=== PATIENT | female | born 1975 | race African-American/Black ===

== ENCOUNTER 2016-06-01 12:39 | Emergency (ER) | payer BC, MEDICAID ==
[~2016-06-01] VITALS: Ht 172.7 cm; Wt 70.0 kg
[~2016-06-01 12:39] MED LIST: MIREIUD IU
[2016-06-01 12:41] VITALS: BP 152/96; PULSE 96; RESP 20; TEMP 98.4; O2SAT 96
[2016-06-01] MEDS ORDERED: MIREIUD I-UTERINE (12:51)
[2016-06-01] MEDS ORDERED: SODIUM CHLOR 0.9% 1000 ML INJ 1,000 ML IV SCH (12:58)
[2016-06-01] MEDS ORDERED: diphenhydrAMINE HCL 50 MG/ML VIAL IV PUSH ONE (13:00)
[2016-06-01] MEDS ORDERED: ONDANSETRON HCL 4 MG/2 ML VIAL IVP ONE (13:00)
[2016-06-01] MEDS ORDERED: SODIUM CHLORIDE 0.9% FLUSH 5 ML FLUSH IVF PRN (13:00)
[2016-06-01] MEDS ORDERED: MORPHINE SULFATE 4 MG/ML INJ IV PUSH ONE (13:00)
--- NOTE | 2016-06-01 13:05 | PD ---
HPI Chief Complaint: Abdominal Pain Time Seen by Provider: 12:51 Travel History International Travel<30 days: No Contact w/Intl Traveler<30days: No Traveled to known affect area: No History of Present Illness HPI The patient is a 40-year-old Radha female who presents to the emergency department for abdominal pain. The patient developed left lower quadrant abdominal pain earlier today that radiates to the suprapubic region. The patient was evaluated by her advertising layout worker at the [address] [place] [address] and had a pelvic examination performed. The patient was then referred to the emergency department for further evaluation. The pain is constant, sharp, and assisted with mild nausea. The patient denies any vomiting, diarrhea, or change in bowel habits. The patient's last bowel movement was this morning. The patient does have a previous history of septic , ectopic on the left with previous salpingectomy, and previous cholecystectomy. The patient denies any vaginal discharge or bleeding. The patient currently has an IUD in place. The patient denies any dysuria, frequency, or urgency. Patient has no known history of diverticulitis. The patient is unsure if they took the left ovary out, however, thinks they left the left ovary when she had the ectopic . PFSH Past Medical History Anxiety: Yes Diminished Hearing: No Tetanus Vaccination: < 5 Years Influenza Vaccination: No ?: Not : 9 Para: 3 Miscarriage: 4 : 2 Ectopic : Yes Dilation and Curettage (D&C): Yes (x3) Past Surgical History Cholecystectomy: Yes Gynecologic Surgery: Yes (left tube removed r/t tubal , ) Other Surgery: Yes (axillary lympnode removed) Social History Alcohol Use: Yes (mix drinks socially) Tobacco Use: No Substance Use: Yes (marijuana) Allergies-Medications (Allergen,Severity, Reaction): Coded Allergies: Cat Dander (Verified Allergy, Severe, HIVES, 06/01/16) Codeine (Verified Allergy, Severe, RASH AND HIVES, 06/01/16) Tylenol/Codeine (Verified Allergy, Severe, HIVES AND RASH, 06/01/16) Vicodin (Verified Allergy, Severe, RASH AND HIVES, 06/01/16) Reported Meds & Prescriptions Reported Meds & Active Scripts Active Reported Mirena (Levonorgestrel (Iud)) 20 Mcg/24 Hr Iud 52 Mg I-UTERINE ONCE Review of Systems Except as stated in HPI: all other systems reviewed are Neg General / Constitutional: No: Fever Cardiovascular: No: Chest Pain or Discomfort Respiratory: No: Shortness of Breath Gastrointestinal: Positive: Nausea, Abdominal Pain, No: Vomiting, Diarrhea, Constipation Genitourinary: Positive: Pelvic Pain, No: Urgency, Frequency, Dysuria, Hematuria, Discharge, Vaginal Bleeding Skin: No Rash Physical Exam Narrative GENERAL: Awake, alert, pleasant 40-year-old female who appears her stated age and appears in moderate discomfort. SKIN: Warm and dry. HEAD: Atraumatic. Normocephalic. EYES: Pupils equal and round. No scleral icterus. No injection or drainage. ENT: No nasal bleeding or discharge. Mucous membranes pink and moist. NECK: Trachea midline. No JVD. CARDIOVASCULAR: Regular rate and rhythm. No murmur appreciated. RESPIRATORY: No accessory muscle use. Clear to auscultation. Breath sounds equal bilaterally. GASTROINTESTINAL: Abdomen soft, tender palpation in the suprapubic and left lower quadrant. No tenderness or right lower quadrant. No rebound tenderness, however, mild guarding. No rigidity noted. MUSCULOSKELETAL: No obvious deformities. No clubbing. No cyanosis. No edema. NEUROLOGICAL: Awake and alert. No obvious cranial nerve deficits. Motor grossly within normal limits. Normal speech. PSYCHIATRIC: Appropriate mood and affect; insight and judgment normal. Data Data Last Documented VS Vital Signs Date Time Temp Pulse Resp B/P Pulse Ox O2 Delivery O2 Flow Rate FiO2 06/01/16 14:07 97 18 147/95 98 Room Air 06/01/16 12:41 98.4 Orders Complete Blood Count With Diff (06/01/16 12:58) Comprehensive Metabolic Panel (06/01/16 12:58) Lipase (06/01/16 12:58) Urinalysis - C+S If Indicated (06/01/16 12:58) Iv Access Insert/Monitor (06/01/16 12:58) Ecg Monitoring (06/01/16 12:58) Oximetry (06/01/16 12:58) Morphine Inj (Morphine Inj) (06/01/16 13:00) Ondansetron Inj (Zofran Inj) (06/01/16 13:00) Sodium Chlor 0.9% 1000 Ml Inj (Ns 1000 M (06/01/16 12:58) Sodium Chloride 0.9% Flush (Ns Flush) (06/01/16 13:00) Ed Urine Pregnancytest Poc (06/01/16 12:58) Diphenhydramine Inj (Benadryl Inj) (06/01/16 13:00) Ct Abd/Pel W/O Iv Contrast (06/01/16 ) Ciprofloxacin 400 Mg Premix (Cipro 400 M (06/01/16 14:00) Metronidazole 500 Mg Inj (Flagyl 500 Mg (06/01/16 14:00) Ketorolac Inj (Toradol Inj) (06/01/16 14:00) Labs Laboratory Tests Test 06/01/16 13:00 White Blood Count 17.7 TH/MM3 Red Blood Count 4.75 MIL/MM3 Hemoglobin 13.9 GM/DL Hematocrit 41.0 % Mean Corpuscular Volume 86.4 FL Mean Corpuscular Hemoglobin 29.4 PG Mean Corpuscular Hemoglobin 34.0 % Concent Red Cell Distribution Width 14.2 % Platelet Count 197 TH/MM3 Mean Platelet Volume 9.5 FL Neutrophils (%) (Auto) 89.4 % Lymphocytes (%) (Auto) 4.4 % Monocytes (%) (Auto) 5.5 % Eosinophils (%) (Auto) 0.1 % Basophils (%) (Auto) 0.6 % Neutrophils # (Auto) 15.8 TH/MM3 Lymphocytes # (Auto) 0.8 TH/MM3 Monocytes # (Auto) 1.0 TH/MM3 Eosinophils # (Auto) 0.0 TH/MM3 Basophils # (Auto) 0.1 TH/MM3 CBC Comment DIFF FINAL Differential Comment Sodium Level 138 MEQ/L Potassium Level 4.0 MEQ/L Chloride Level 105 MEQ/L Carbon Dioxide Level 28.2 MEQ/L Anion Gap 5 MEQ/L Blood Urea Nitrogen 12 MG/DL Creatinine 0.96 MG/DL Estimat Glomerular Filtration 78 ML/MIN Rate Random Glucose 91 MG/DL Calcium Level 9.0 MG/DL Total Bilirubin 1.5 MG/DL Aspartate Amino Transf 12 U/L (AST/SGOT) Alanine Aminotransferase 17 U/L (ALT/SGPT) Alkaline Phosphatase 88 U/L Total Protein 8.1 GM/DL Albumin 4.0 GM/DL Lipase 54 U/L MDM Medical Decision Making Medical Screen Exam Complete: Yes Emergency Medical Condition: Yes Medical Record Reviewed: Yes Interpretation(s) Laboratory Tests Test 06/01/16 13:00 White Blood Count 17.7 TH/MM3 Red Blood Count 4.75 MIL/MM3 Hemoglobin 13.9 GM/DL Hematocrit 41.0 % Mean Corpuscular Volume 86.4 FL Mean Corpuscular Hemoglobin 29.4 PG Mean Corpuscular Hemoglobin 34.0 % Concent Red Cell Distribution Width 14.2 % Platelet Count 197 TH/MM3 Mean Platelet Volume 9.5 FL Neutrophils (%) (Auto) 89.4 % Lymphocytes (%) (Auto) 4.4 % Monocytes (%) (Auto) 5.5 % Eosinophils (%) (Auto) 0.1 % Basophils (%) (Auto) 0.6 % Neutrophils # (Auto) 15.8 TH/MM3 Lymphocytes # (Auto) 0.8 TH/MM3 Monocytes # (Auto) 1.0 TH/MM3 Eosinophils # (Auto) 0.0 TH/MM3 Basophils # (Auto) 0.1 TH/MM3 CBC Comment DIFF FINAL Differential Comment Sodium Level 138 MEQ/L Potassium Level 4.0 MEQ/L Chloride Level 105 MEQ/L Carbon Dioxide Level 28.2 MEQ/L Anion Gap 5 MEQ/L Blood Urea Nitrogen 12 MG/DL Creatinine 0.96 MG/DL Estimat Glomerular Filtration 78 ML/MIN Rate Random Glucose 91 MG/DL Calcium Level 9.0 MG/DL Total Bilirubin 1.5 MG/DL Aspartate Amino Transf 12 U/L (AST/SGOT) Alanine Aminotransferase 17 U/L (ALT/SGPT) Alkaline Phosphatase 88 U/L Total Protein 8.1 GM/DL Albumin 4.0 GM/DL Lipase 54 U/L Last Impressions Abdomen/Pelvis CT 06/01/16 0000 Signed Impressions: Service Date/Time: May 13:30 - CONCLUSION: Acute sigmoid diverticulitis. No evidence of abscess formation. Melvi Clemons MD Differential Diagnosis Differential diagnosis includes diverticulitis, ectopic , pyelonephritis, nephrolithiasis, ovarian torsion, ovarian cyst, perforated viscus, atypical appendicitis. Narrative Course IV was established, labs are drawn and sent, and the patient was monitored in the emergency department. The patient was administered morphine with Benadryl secondary to history of allergies to codeine and Vicodin with itching. The patient is unsure if she has a history of allergies to morphine. The patient was also administered 1 L of IV fluids. Bedside UA test was obtained , bedside test was negative. White count was elevated 17.4, otherwise , LFTs and lipase are unremarkable. CT of the abdomen and pelvis reveals sigmoid diverticulitis with no perforation or abscess formation. Therefore, patient was administered Cipro and Flagyl intravenously. Patient was also administered Toradol 30 mg intravenously for pain. The patient states she can take Percocet for pain, she has had it in the past without difficulty. Diagnosis Primary Impression: Diverticulitis of sigmoid colon Patient Instructions: General Instructions Additional Instructions: Medications as directed. Follow-up with your primary physician. Please provide the patient a copy of her CT results and lab results at discharge. Return if symptoms worsen or progress. Med/Other Pt SpecificInfo: Prescription(s) given Scripts Oxycodone-Acetaminophen (Percocet)5-325 mg Tab1 Tab PO Q6H PRN (PAIN) #20 TAB Ref 0 Prov:Juan Whitman MD 06/01/16 Metronidazole (Flagyl)500 Mg [id number] Mg PO BID 7 Days Ref 0 Prov:Juan Whitman MD 06/01/16 Ciprofloxacin (Cipro)500 Mg [id number] Mg PO BID 7 Days Ref 0 Prov:Juan Whitman MD 06/01/16 Disposition: 01 DISCHARGE HOME Condition: Stable Juan Whitman MD Jun 01, 2016 13:05
[2016-06-01 13:22] LABS: AUTOMATED NEUTROPHIL # 15.8 TH/MM3 (1.8-7.7); BASOPHIL # 0.1 TH/MM3 (0-0.2); BASOPHIL % 0.6 % (0.0-2.0); EOSINOPHIL % 0.1 % (0.0-4.0); HEMO FLAGS DIFF FINAL; LYMPH % 4.4 % (9.0-44.0); LYMPHOCYTE # 0.8 TH/MM3 (1.0-4.8); MEAN CELL VOLUME 86.4 FL (80.0-100.0); MEAN CORPUSCULAR HEMOGLOBIN 29.4 PG (27.0-34.0); MONO % 5.5 % (0.0-8.0); NEUT % 89.4 % (16.0-70.0); PLATELET COUNT 197 TH/MM3 (150-450); RED BLOOD COUNT 4.75 MIL/MM3 (4.00-5.30); RED CELL DISTRIBUTION WIDTH 14.2 % (11.6-17.2); WHITE BLOOD COUNT 17.7 TH/MM3 (4.0-11.0)
[2016-06-01 13:35] LABS: ANION GAP 5 MEQ/L (5-15); AST (GOT) 12 U/L (15-37); BICARBONATE 28.2 MEQ/L (21.0-32.0); BLOOD UREA NITROGEN 12 MG/DL (7-18); CHLORIDE 105 MEQ/L (98-107); GLOMERULAR FILTRATION RATE 78 ML/MIN (>89); SODIUM (NA) 138 MEQ/L (136-145)
[2016-06-01 13:43] LABS: ALKALINE PHOSPHATASE 88 U/L (45-117); ALT (GPT) 17 U/L (10-53); TOTAL BILIRUBIN ADULT 1.5 MG/DL (0.2-1.0)
--- NOTE | 2016-06-01 13:53 | RADRPT ---
EXAM DATE/TIME: 06/01/2016 13:30 [facility] COMPARISON: No previous studies available for comparison. INDICATIONS : Left lower quadrant pain. ORAL CONTRAST: No oral contrast ingested. RADIATION DOSE: 9.96 CTDIvol (mGy) MEDICAL HISTORY : None SURGICAL HISTORY : Cholecystectomy. Left salpingectomy. ENCOUNTER: Initial ACUITY: 1 day PAIN SCALE: 6/10 LOCATION: Left lower quadrant TECHNIQUE: Volumetric scanning of the abdomen and pelvis was performed. Using automated exposure control and ad justment of the mA and/or kV according to patient size, radiation dose was kept as low as reasonably achievable to obtain optimal diagnostic quality images. FINDINGS: LOWER LUNGS: The visualized lower lungs are clear. LIVER: Homogeneous density without lesion. There is no dilation of the biliary tree. No calcified gallston es. SPLEEN: Normal size without lesion. PANCREAS: Within normal limits. KIDNEYS: Normal in size and shape. There is no mass, stone, or hydronephrosis. ADRENAL GLANDS: Within normal limits. VASCULAR: There is no aortic aneurysm. BOWEL/MESENTERY: There are scattered diverticuli identified within the sigmoid colon with adjacent leighann-mesenteric fat stranding. There is a small amount of free fluid identified within the mesentery of the right. No ev idence of free air or discrete abscess. ABDOMINAL WALL: Within normal limits. RETROPERITONEUM: There is no lymphadenopathy. BLADDER: No wall thickening or mass. REPRODUCTIVE: Within normal limits. IUD identified within the midline uterus. INGUINAL: There is no lymphadenopathy or hernia. MUSCULOSKELETAL: Within normal limits for patient age. CONCLUSION: Acute sigmoid diverticulitis. No evidence of abscess formation. Melvi Clemons MD on June 01, 2016 at 13:49 Board Certified Radiologist. This report was verified electronically.
[2016-06-01] MEDS ORDERED: CIPROFLOXACIN 400 MG PREMIX 200 ML IV ONE (14:00)
[2016-06-01] MEDS ORDERED: metroNIDAZOLE 500 MG INJ 100 ML IV ONE (14:00)
[2016-06-01] MEDS ORDERED: KETOROLAC TROMETHAMINE 30 MG/ML (IVP) VIAL IV PUSH ONE (14:00)
[2016-06-01 14:07] VITALS: BP 147/95; PULSE 97; RESP 18; O2SAT 98
[2016-06-01] MEDS ORDERED: PERC5TAB12 PO (14:44)
[2016-06-01] MEDS ORDERED: METR-1 PO (14:44)
[2016-06-01] MEDS ORDERED: CIPR-9 PO (14:44)
[2016-06-01 15:00] VITALS: BP 124/60; PULSE 72; RESP 16; O2SAT 98
[2016-06-01] MEDS ORDERED: SODIUM CHLOR 0.9% 1000 ML INJ 1,000 ML IV ONE (15:00)
[2016-06-01 17:58] VITALS: BP 129/59
== END 2016-06-01 18:12 | disposition home or self-care (01) ==
LOC: NEPA 12:39
DX: K57.32 Diverticulitis of large intestine without perforation or abscess without bleeding (principal); F12.90 Cannabis use, unspecified, uncomplicated
CPT/HCPCS: 74176; 80053; 83690; 84703; 85025; 96361; 96365; 96375; 99284; J0744; J1200; J1885; J2270; J2405; J7030

== ENCOUNTER 2016-12-07 14:36 | Emergency (ER) | payer BC, MEDICAID, OTHER ==
[~2016-12-07] VITALS: Ht 170.2 cm; Wt 67.0 kg
[~2016-12-07 14:36] MED LIST changes: +CIPR-9 PO; +METR-1 PO; +MIREIUD I-UTERINE; -MIREIUD IU; +PERC5TAB12 PO
[2016-12-07 14:40] VITALS: BP 150/87; PULSE 88; RESP 16; TEMP 98.1; O2SAT 98
[2016-12-07] MEDS ORDERED: MELO-1 PO (15:29)
[2016-12-07] MEDS ORDERED: ROBA500T PO (15:29)
--- NOTE | 2016-12-07 15:30 | PD ---
HPI Chief Complaint: Back/ Neck Pain or Injury Time Seen by Provider: 15:24 Travel History International Travel<30 days: No Contact w/Intl Traveler<30days: No Traveled to known affect area: No History of Present Illness HPI 41-year-old female presents emergency department for evaluation of right low back pain 6 months. Patient denies specific injury. She reports the pain is intermittent. Worse with movement, relieved with rest, severity 4-10. She denies fever, chills, saddle anesthesia, urinary symptoms, numbness/weakness/ tingling of lower extremities. PFSH Past Medical History Medical History: Denies Significant Hx Anxiety: Yes Diminished Hearing: No Diverticulitis: Yes ?: Not LMP: MIRENA IN PLACE : 9 Para: 3 Miscarriage: 4 : 2 Ectopic : Yes Dilation and Curettage (D&C): Yes (x3) Past Surgical History Cholecystectomy: Yes Gynecologic Surgery: Yes (left tube removed r/t tubal , ) Other Surgery: Yes (axillary lympnode removed) Social History Alcohol Use: Yes ("RARELY") Tobacco Use: No Substance Use: Yes (marijuana) Allergies-Medications (Allergen,Severity, Reaction): Coded Allergies: Cat Dander (Verified Allergy, Severe, HIVES, 12/07/16) Codeine (Verified Allergy, Severe, RASH AND HIVES, 12/07/16) Tylenol/Codeine (Verified Allergy, Severe, HIVES AND RASH, 12/07/16) Vicodin (Verified Allergy, Severe, RASH AND HIVES, 12/07/16) Reported Meds & Prescriptions Reported Meds & Active Scripts Active Review of Systems Except as stated in HPI: all other systems reviewed are Neg General / Constitutional: No: Fever Eyes: No: Visual changes HENT: No: Headaches Cardiovascular: No: Chest Pain or Discomfort Respiratory: No: Shortness of Breath Gastrointestinal: No: Abdominal Pain Genitourinary: No: Dysuria Physical Exam Narrative GENERAL: Well-nourished, well-developed patient. SKIN: Focused skin assessment warm/dry. HEAD: Normocephalic. EYES: No scleral icterus. No injection or drainage. NECK: Supple, trachea midline. No JVD or lymphadenopathy. CARDIOVASCULAR: Regular rate and rhythm without murmurs, gallops, or rubs. RESPIRATORY: Breath sounds equal bilaterally. No accessory muscle use. GASTROINTESTINAL: Abdomen soft, non-tender, nondistended. MUSCULOSKELETAL: No cyanosis, or edema. 5 out of 5 strength in the lower extremities. Normal sensation. BACK: Nontender without obvious deformity. No CVA tenderness. Tenderness to the right paraspinous muscles in lumbar spine. Data Data Last Documented VS Vital Signs Date Time Temp Pulse Resp B/P Pulse Ox O2 Delivery O2 Flow Rate FiO2 12/07/16 14:40 98.1 88 16 150/87 98 MDM Medical Decision Making Medical Screen Exam Complete: Yes Emergency Medical Condition: Yes Differential Diagnosis Lumbar strain, sciatica, herniated disc Narrative Course 41-year-old female presents emergency department for right low back pain 6 months. Physical exam is reassuring. Patient has no midline spine tenderness. She has mild tenderness to the right paraspinous muscles in the lumbar region. Patient will be prescribed NSAIDs and muscle relaxers instructed to follow-up with PCP. Diagnosis Primary Impression: Lumbar strain Qualified Code: S39.012A - Lumbar strain, initial encounter Referrals: Primary Care Physician Scripts Methocarbamol (Robaxin)500 Mg [id number] Mg PO TID PRN (MUSCLE SPASM) #12 TAB Prov:Fang Lara 12/07/16 Meloxicam 15 Mg Tab15 Mg PO DAILY #30 TAB Ref 0 Prov:Fang Lara 12/07/16 Disposition: 01 DISCHARGE HOME Condition: Stable Fang Lara Dec 07, 2016 15:30
== END 2016-12-07 15:49 | disposition home or self-care (01) ==
LOC: PHEFT 14:36
DX: S39.012A Strain of muscle, fascia and tendon of lower back, initial encounter (principal); X58.XXXA Exposure to other specified factors, initial encounter; Y93.9 Activity, unspecified; Y92.9 Unspecified place or not applicable
CPT/HCPCS: 99284

== ENCOUNTER 2018-04-22 08:07 | Observation (INO) ==
[2018-04-22 09:15] LABS: Baso % (Auto) 0.4 % (0.0-2.0); Eos # (Auto) 0.1 th/mm3 (0.0-0.4); Eos % (Auto) 0.9 % (0.0-4.0); Hematocrit 38.5 % (35.0-46.0); Hemoglobin 13.3 gm/dL (11.6-15.3); Lymph # (Auto) 1.7 th/mm3 (1.0-4.8); Lymph % (Auto) 18.7 % (9.0-44.0); Mean Corpuscular HGB Conc 34.5 % (32.0-36.0); Mean Corpuscular Hemoglobin 32.3 pg (27.0-34.0); Mean Corpuscular Volume 93.6 fL (80.0-100.0); Mean Platelet Volume 9.7 fL (7.0-11.0); Mono # (Auto) 0.6 th/mm3 (0.0-0.9); Neut # (Auto) 6.5 th/mm3 (1.8-7.7); Platelet Count 151 th/mm3 (150-450); Red Blood Count 4.12 mil/mm3 (4.00-5.30); Red Cell Distribution Width 13.4 % (11.6-17.2); White Blood Count 8.9 th/mm3 (4.0-11.0)
[2018-04-22] MEDS ORDERED: Chlorhexidine Gluconate 2% 1 Pack (2 Cloths) TOPICAL ONE (09:15)
[2018-04-22] MEDS ORDERED: Sodium Chlor 0.9% Inj 500 ML IV.CONT ONE (09:15)
[2018-04-22] MEDS ORDERED: Metoprolol Tartrate 25 MG Tablet PO ONE (09:15)
--- NOTE | 2018-04-22 09:23 | XR ---
EXAM DATE: 04/22/2018 9:21 AM EST AGE/SEX: 42 years / Female INDICATIONS: Pre op lumbar spine surgery. CLINICAL DATA: This is the patient's initial encounter. Patient reports that signs and symptoms have been present for 1 day and indicates a pain score of 0/10. MEDICAL/SURGICAL HISTORY: None. None. COMPARISON: No prior exams available for comparison. FINDINGS: A single AP view of the chest demonstrates the lungs to be symmetrically aerated without evidence of mass, infiltrate or effusion. The cardiomediastinal contours are unremarkable. Osseous structures a re intact. CONCLUSION: No acute intrathoracic disease. Electronically signed by: Rajesh Chamorro MD 04/22/2018 9:22 AM EST
[2018-04-22] MEDS ORDERED: Sugammadex Inj 200 MG/2 ML Vial IV.PUSH ONE (09:43)
[2018-04-22] MEDS ORDERED: Thrombin Topical Soln 5,000 UNIT Vial TOPICAL ONE (10:05)
[2018-04-22] MEDS ORDERED: Lidocaine 1% Inj 50 ML Vial ONE (10:05)
[2018-04-22] MEDS ORDERED: Bupivacaine/Epinephrine PF Inj 0.5% 30 ML Vial ONE (10:05)
[2018-04-22] MEDS ORDERED: Gelatin Size 100 Topical Foam ONE (10:05)
[2018-04-22] MEDS ORDERED: Normosol-R pH 7.4 Inj 1,000 ML IV.CONT ONE (10:11)
[2018-04-22] MEDS ORDERED: Lidocaine PF 1% Inj 5 ML Syringe OTHER ONE (10:11)
[2018-04-22] MEDS ORDERED: ceFAZolin 1 GM Premix Inj 2 GM/100 ML PIGGYBACK IV.SIG ONE (10:16)
--- NOTE | 2018-04-22 11:59 | P.OP ---
- Preoperative Diagnosis (1) Herniated nucleus pulposus, L5-S1, right - Postoperative Diagnosis (1) Herniated nucleus pulposus, L5-S1, right Date of procedure: 04/22/18 Procedure: Right L5/S1 hemilaminotomy and microdiscectomy Anesthesia: VIDHI Surgeon: Joaquin Bui MD Operation and Findings: Indications: This is a 42 year old female with right L5/S1 herniated disc that has been symptomatic for 4 months. Surgery is indicated for relief of worsening pain. Description of procedure: Patient was brought to Main OR and intubated. She was placed prone. All pressure points were padded. Mid lumbar spine was prepped and draped in the usual sterile fashion. Incision was centered around L5/S1 using fluoroscopy. Subperiosteal dissection of right inferior L5 lamina and superior S1 lamina. Drill was used to enlarge the laminotomy at inferior right L5 and curettes and punches were used to remove ligamentum flavum. Right S1 nerve root was encountered bulging and deep to this, a free disc fragment was removed which was large and after removal, brought relief the nerve root. This space was entered and a smaller fragment removed. Disc space confirmed, nerve root probed free. Wound irrigated with antibiotic irrigation, gelfoam placed over the exposed nerve root, then closed in layers of 2-0 Vicryl for deep fascia, interrupted inverted 3-0 Vicryl for subcutaneous, monocril and dermabond for skin. Sterile dressings applied. Patient returned supine, extubated, taken to recovery in stable condition.
[2018-04-22] MEDS ORDERED: Bisacodyl 10 MG Supp RECTAL PRN ×2 (12:01→12:39)
--- NOTE | 2018-04-22 12:10 | XR ---
EXAM DATE: 04/22/2018 12:07 PM EST AGE/SEX: 42 years / Female INDICATIONS: Herniated disk. CLINICAL DATA: This is the patient's initial encounter. Patient reports that signs and symptoms have been present for 1 day and indicates a pain score of Nonresponsive. MEDICAL/SURGICAL HISTORY: None. None. COMPARISON: No prior exams available for comparison. FINDINGS: Single lateral view of the lower lumbar spine was performed. A localization device has been placed po steriorly at the last disc space level which I suspect is L5-S1. CONCLUSION: Level localization last disc space level L5-S1. Electronically signed by: Rajesh Chamorro MD 04/22/2018 12:09 PM EST
[2018-04-22] MEDS ORDERED: fentaNYL Citrate Inj 100 MCG/2 ML Ampul ONE (12:21)
[2018-04-22] MEDS ORDERED: Morphine Inj 4 MG/ML Vial ONE (12:21)
[2018-04-22] MEDS ORDERED: *HYDROmorphone PF Inj 1 MG/ML Ampul PERIprocedural Use ONLY ONE ×2 (12:27→17:55)
--- NOTE | 2018-04-22 19:54 | ECG ---
Date Performed: 04/22/2018 Time Performed: 09:11:55 PTAGE: 42 years EKG: Sinus rhythm POSSIBLE RIGHT VENTRICULAR CONDUCTION DELAY BORDERLINE ECG NO PREVIOUS TRACING DOCTOR: Micheal Tello Interpretating Date/Time 04/22/2018 19:53:01
[2018-04-22] MEDS ORDERED: Senna/Docusate Sodium 8.6/50 MG Tablet PO SCH (21:00)
[2018-04-22] MEDS: Senna/Docusate Sodium 8.6/50 MG Tablet PO SCH (23:14)
[2018-04-23] MEDS: Senna/Docusate Sodium 8.6/50 MG Tablet PO SCH (09:44)
== END 2018-04-23 16:04 | disposition home or self-care (01) ==
LOC: N05 08:07 → HSDC 08:07
PROVIDERS: ADMIT Neurological Surgery; ATTEND Neurological Surgery